=== PATIENT | male | born 1955 | race Caucasian/White ===

== ENCOUNTER → 2016-07-23 | Outpatient (CLI) | payer OTHER ==
--- NOTE | 2016-07-24 08:27 | REP ---
Left wrist series: Four views. History: Wrist arthritis. Findings: There is some mild hypertrophy and early spurring at the first carpometacarpal articulation consistent with osteoarthritis. There is a suggestion of a subcortical cyst in the lunate. No acute bony abnormality. No erosive changes seen. Impression: Mild first carpometacarpal joint osteoarthritic spurring. Small cyst in the lunate. Otherwise negative. Signed by Jeff Bhardwaj MD 07/24/2016 08:43 A
== END ==
LOC: M ADAMS 15:55
PROVIDERS: ATTEND Family Medicine
DX: M19.90 Unspecified osteoarthritis, unspecified site (principal)

== ENCOUNTER 2016-12-01 04:43 | Inpatient (IN) | payer OTHER ==
[~2016-12-01] VITALS: Ht 165.1 cm; Wt 82.4 kg
[2016-12-01] VITALS (7 sets, daily range): BP systolic 105–140; BP diastolic 57–77
[2016-12-01] MEDS ORDERED: VITA1CAP40 (05:03)
[2016-12-01] MEDS ORDERED: LEVO25TA5 (05:03)
[2016-12-01] MEDS ORDERED: B121000T PO (05:03)
[2016-12-01] MEDS ORDERED: ATOR1TAB21 PO ×2 (05:03→09:24)
[2016-12-01] MEDS ORDERED: NS 1,000 ML IV ONE (05:30)
[2016-12-01 06:10] LABS: BASO % 0.1 % (0.0-1.0); EOS # 0.1 K/mm3 (0.0-0.50); EOS % 0.9 % (0.0-3.0); LARGE UNSTAINED CELL # 0.1 K/mm3 (0.0-0.4); LARGE UNSTAINED CELL % 0.9 % (0.0-4.0); LYMPH # 1.3 K/mm3 (1.5-4.5); LYMPH % 8.3 % (24.0-44.0); MEAN CORPUSCULAR HEMOGLOBIN 30.4 pg (27.0-33.0); MEAN CORPUSCULAR HGB CONC 34.6 g/dl (32.0-36.5); MEAN CORPUSCULAR VOLUME 87.9 fl (80.0-96.0); MONO # 0.6 K/mm3 (0.0-0.8); MONO % 4.2 % (0.0-5.0); NEUTROPHILS # 11.9 K/mm3 (1.8-7.7); NEUTROPHILS % 85.6 % (36.0-66.0); PLATELET COUNT, AUTOMATED 222 k/mm3 (150-450); RED CELL DISTRIBUTION WIDTH 12.9 % (11.5-14.5); WHITE BLOOD COUNT 13.9 K/mm3 (4.0-10.0)
[2016-12-01 06:28] LABS: INR 0.93
[2016-12-01 06:30] LABS: ALBUMIN 3.7 GM/DL (3.2-5.2); ALBUMIN/GLOBULIN RATIO 1.06 (1.00-1.93); BILIRUBIN,DIRECT 0.3 MG/DL (0.0-0.2); BILIRUBIN,TOTAL 1.4 MG/DL (0.2-1.0); CALCIUM LEVEL 8.9 MG/DL (8.5-10.1); CREATININE FOR GFR 1.31 MG/DL (0.70-1.30); GLOMERULAR FILTRATION RATE 59.6 (>56); POTASSIUM SERUM 3.7 MEQ/L (3.5-5.1); TOTAL PROTEIN 7.2 GM/DL (6.4-8.2)
[2016-12-01] MEDS ORDERED: MORPHINE 4 MG/ML 1ML SYRINGE IV ONE (06:30)
[2016-12-01] MEDS ORDERED: ISOVUE-370 76% 100ML VIAL (Q9967) As Ordered ONE (06:36)
--- NOTE | 2016-12-01 07:12 | REP ---
Clinical: Right-sided abdominal pain. Technique: Axial contrast enhanced images from the thoracic inlet to the upper abdomen using 100 ml Isovue 370 intravenous contrast material with coronal and sagittal re-formations. Findings: Right lower quadrant inflammatory changes surrounding a dilated appendix measuring greater than 12 mm diameter is compatible with acute appendicitis. Secondary inflammatory changes to the terminal ileum and base of the cecum noted. No evidence for bowel obstruction. No free air. No evidence for perforation or drainable collection/abscess. Small amount of ascites extends into the pelvis. Liver demonstrates few scattered subcentimeter hypodensities likely representing cysts. Spleen, pancreas, bilateral adrenal glands and kidneys are normal. The patient is status post cholecystectomy. Small hiatal hernia at the gastroesophageal junction. Evidence for colonic diverticula without acute diverticulitis. Pelvis demonstrates normal bladder and age appropriate prostate/seminal vesicles. No free air. No intraperitoneal or retroperitoneal adenopathy. Abdominal aorta and vasculature is normal. Surrounding musculoskeletal structures are intact. Impression: Acute appendicitis as described above. No evidence for bowel obstruction, perforation or drainable collection/abscess. Signed by Kenneth Champagne MD 12/01/2016 07:03 A
[2016-12-01] MEDS ORDERED: PIPERACILLIN/TAZOBACTAM SOD 3.375 GM in D5W MINI-BAG PLUS 50 ML IV ONE (07:30)
[2016-12-01] MEDS ORDERED: ONDANSETRON 4MG/2ML VIAL (J2405) IV ONE (08:15)
--- NOTE | 2016-12-01 08:33 | REP ---
Clinical: Preoperative assessment. Technique: PA and lateral. Findings: Mediastinum and cardiac silhouette are normal. Airway is midline and patent. Bibasilar atelectasis (right greater than left) noted. Small pleural reaction cannot be excluded. No pneumothorax. Skeletal structures intact. Impression: Bibasilar atelectasis. Cannot exclude small pleural reaction. Signed by Kenneth Champagne MD 12/01/2016 08:25 A
[2016-12-01] MEDS ORDERED: VITMTA PO (09:24)
[2016-12-01] MEDS ORDERED: DRIS50002 PO (09:24)
[2016-12-01] MEDS ORDERED: VITA10002 PO (09:24)
[2016-12-01] MEDS ORDERED: LEVO25TA34 PO (09:24)
[2016-12-01] MEDS ORDERED: ONDANSETRON 4MG/2ML VIAL (J2405) IV PRN ×2 (11:00→19:00)
--- NOTE | 2016-12-01 11:26 | ECGEPIP ---
Stationary ECG Study [facility] - ED Test Date: 2016-12-01 Pat Name: ALEJANDRO GALLEGOS Department: Room: - Gender: M Director Of Consumer Marketing: jesus : 1955 Requested By: ALYX DIAZ PA-C. Order Number: [id number] Reading MD: Ashley Blanton Measurements Intervals [place] Rate: 90 P: -3 OR: 140 QRS: 56 QRSD: 94 T: 41 QT: 348 QTc: 426 Interpretive Statements SINUS RHYTHM NSTTW ABNORMALITY COMPARED 08/02/12 Electronically Signed On 12-01-2016 11:26:06 EDT by Ashley Blanton
[2016-12-01] MEDS ORDERED: ACETAMINOPHEN 325 MG TAB As Ordered ONE (11:49)
[2016-12-01] MEDS: ACETAMINOPHEN TAB 650MG DOSE (2X325MG) PO PRN (11:56)
[2016-12-01] MEDS: MORPHINE 4 MG/ML 1ML SYRINGE IV PRN ×2 (13:51→23:22)
[2016-12-01] MEDS: PIPERACILLIN/TAZOBACTAM SOD 3.375 GM in D5W MINI-BAG PLUS 50 ML IV SCH ×2 (13:51→19:23)
[2016-12-01] MEDS: LR 1,000 ML IV SCH ×2 (13:51→21:20)
[2016-12-01] MEDS ORDERED: BUPIVACAINE HCL 0.25% 30 ML VIAL As Ordered ONE (16:28)
[2016-12-01] MEDS ORDERED: LIDOCAINE 1% SDV INJ 30 ML VIAL As Ordered ONE (16:28)
[2016-12-01] MEDS ORDERED: fentaNYL 250 MCG/5 ML INJECTION (J3010) As Ordered ONE (16:49)
[2016-12-01] MEDS ORDERED: LIDOCAINE 2% JELLY 30 ML As Ordered ONE (16:49)
[2016-12-01] MEDS ORDERED: PHENYLephrine HCL 500 MCG/5 ML (100MCG/ML) SYRINGE (J2370) As Ordered ONE ×2 (16:51→17:01)
[2016-12-01] MEDS ORDERED: METOCLOPRAMIDE INJ 10MG/2ML VIAL (J2765) As Ordered ONE (16:51)
[2016-12-01] MEDS ORDERED: LIDOCAINE 2% INJ 100 MG/5 ML SDV (FOR ANES.) As Ordered ONE (16:52)
[2016-12-01] MEDS ORDERED: ROCURONIUM BROMIDE 50 MG/5 ML VIAL/SYRINGE As Ordered ONE (16:53)
[2016-12-01] MEDS ORDERED: PROPOFOL 200 MG/20 ML VIAL As Ordered ONE (16:54)
[2016-12-01] MEDS ORDERED: NEOSTIGMINE 1MG/ML 5 ML SYRINGE (J2710) As Ordered ONE (17:00)
[2016-12-01] MEDS ORDERED: GLYCOPYRROLATE INJ 0.2 MG/ML 2 ML VIAL As Ordered ONE (17:00)
[2016-12-01] MEDS ORDERED: ONDANSETRON 4MG/2ML VIAL (J2405) As Ordered ONE (17:00)
[2016-12-01] MEDS ORDERED: MIDAZOLAM INJ 2 MG/2 ML VIAL (J2250) As Ordered ONE (17:18)
[2016-12-01] MEDS ORDERED: fentaNYL 100 MCG/2 ML INJECTION (J3010) As Ordered ONE (18:01)
[2016-12-01] MEDS ORDERED: LEVALBUTEROL 1.25 MG/0.5 ML CONCENTRATE NEB As Ordered ONE (18:08)
--- NOTE | 2016-12-01 18:11 | ROOPDOC ---
[facility] Report Of Operation Report of Operation DATE OF PROCEDURE: 12/01/16 PREPROCEDURE DIAGNOSES: Acute Appendicitis POSTPROCEDURE DIAGNOSES: Perforated appendicitis PROCEDURE: Laparoscopic Appendectomy. SURGEON: Huan Alaniz MD CONSTITUTION[employer] PROFESSOR: KOLBY Rodriguez ANESTHESIA: general. ESTIMATED BLOOD LOSS: Approximately 50 mL. COMPLICATIONS: none. REMARKS: 61 M with one day history of abdominal pain localizing to the right lower quadrant. PROCEDURE NOTE: Grossly ischemic and necrotic appendix with perforation at the base of the appendix. The mesoappendix his very thickened and friable resulting in bleeding and some difficulty in controlling the appendiceal artery initially. The appendix was stapled at the base just beyond the area of perforation. The staple lines reflect the dusky appendix but stable. A tongue of omentum was then draped on top of the stump and a 10 flat SHIRLEY drain was left in place. DESCRIPTION OF PROCEDURE: .Patient has been given a dose of Zosyn perioperatively.Patient was brought to the operating room, placed supine on the table. Sequential compression device placed for DVT prophylaxis. General endotracheal anesthesia started. The abdomen prepped and draped in usual sterile fashion. After a surgical timeout, we began our surgery Entry into the abdomen done through an incision at the left upper quadrant to avoid previous periumbilical incisions and then dissipated scaring underneath this.. Veress needle inserted on a controlled fashion. Intra-abdominal placement confirmed with saline drop technique. CO2 insufflation started to a pressure of 15 mmHg. Using the same incision a 12 mm port was placed under direct vision of laparoscope. Insertion site was inspected for injury and none was found. He was placed on a Trendelenburg position the right side tilted to about 30 to allow for better visualization of the appendix. The area underneath the umbilicus seems clear. A 12 mm port was placed under direct vision. Another 5 mm working port was placed at the left lower quadrant area. Operative findings: There was some thickened omentum covering the bowels. There is some signs of inflammation on the omentum overlying the right lower quadrant area. After removing the omentum from the area of the appendix was noted adhered to the right sidewall. This was gross lesions ischemic with the accompanying mesal appendix thick and friable. There was some murky fluid bathing the appendix and along the right gutter and perihepatic area. The appendix was located, the adhered bowels and mesentery was widely dissected away from the appendix freeing up the appendix from the inflammatory adhesions using [place] instrument and suction irrigation. The Surrounding bowels retracted away from the appendix. This was grasped to pull the base of the appendix into view. The mesoappendix was divided using Harmonic scalpel down to the base. The mesoappendix was so friable that we had difficulty controlling the appendiceal artery intially but eventually did so with hemoclips The appendix looks ischemic throughtout.This was followed down to the base where a perforation was noted right at the base close to its insertion to the cecum. The cecal wall close to the area is mildly thickened. Using [place] instrument, I was able to get beyond the area of perforation in between the appendix and cecum to lift the appendix up. A 45 mm stapler with a blue load was then used to divide the appendix at its base beyond the perforation. As the appendix itself is somewhat dusky in appearance, the stump is dusky appearing but the staple line is intact. Unfortunately since the cecum is thickened, we could not get any further purchase downward with the stapler. I then mundo a thick tongue of omentum back and wrapped this around the stump and held it in place with hemoclips to the wall of the cecum, the surrounding epiploic fat which seems to hold it in place. A 10 flat SHIRLEY drain was then left close the stump and around the right gutter coming out through the left upper quadrant port site. Appendix was then delivered into an Endo Catch bag. After re- insufflation the surgical site was inspected for hemostasis, the visualized fluid collections irrigated and suctioned off until clear return. Surrounding areas of the abdomen and inspected for fluid collections or signs of injury. The abdomen was deflated. All ports removed. The umbilical fascial defect repaired with 0 Vicryl in a mattress fashion. All skin incisions closed with 4- 0 Monocryl in a subcuticular fashion. Steri-Strips and gauze dressing used for wound coverage. Patient was promptly awake and extubated and brought to recovery room stable. All counts of sponges and instruments verified to be correct. JCARLOS ALANIZ MD Dec 01, 2016 16:51
[2016-12-01] MEDS ORDERED: LEVALBUTEROL 1.25 MG/0.5 ML CONCENTRATE NEB NEB PRN (18:30)
[2016-12-01] MEDS: LEVALBUTEROL 1.25 MG/0.5 ML CONCENTRATE NEB NEB SCH ×2 (18:35→19:01)
[2016-12-01] MEDS ORDERED: KETOROLAC 30 MG/ML VIAL (J1885) As Ordered ONE (18:47)
[2016-12-01] MEDS ORDERED: ZOSYN 3.375 GM VIAL (J2543) As Ordered ONE (18:57)
[2016-12-01] MEDS ORDERED: METOCLOPRAMIDE INJ 10MG/2ML VIAL (J2765) IV PRN (19:00)
[2016-12-01] MEDS ORDERED: LR 1,000 ML IV SCH (19:00)
[2016-12-01] MEDS ORDERED: fentaNYL 100 MCG/2 ML INJECTION (J3010) IV PRN (19:00)
[2016-12-01] MEDS: KETOROLAC 30 MG/ML VIAL (J1885) IV PRN (19:00)
[2016-12-01] MEDS ORDERED: PERCOCET 5MG/325MG TAB As Ordered ONE (19:12)
[2016-12-01] MEDS ORDERED: PERCOCET 5MG/325MG TAB PO PRN (19:30)
[2016-12-01] MEDS: CYANOCOBALAMIN 500 MCG TAB PO SCH (21:20)
[2016-12-01] MEDS: MULTIVITAMINS/MINERALS THERAP 1 TAB PO SCH (21:20)
[2016-12-01] MEDS: ATORVASTATIN 20 MG TAB PO SCH (21:20)
[2016-12-02 00:45] VITALS: BP 107/60
[2016-12-02] MEDS: PIPERACILLIN/TAZOBACTAM SOD 3.375 GM in D5W MINI-BAG PLUS 50 ML IV SCH ×4 (02:03→20:09)
[2016-12-02] MEDS: KETOROLAC 30 MG/ML VIAL (J1885) IV PRN (02:04)
[2016-12-02 04:00] VITALS: BP 99/56
[2016-12-02] MEDS: LEVOTHYROXINE 25MCG TABLET (0.025MG) PO SCH (05:45)
[2016-12-02] MEDS: LR 1,000 ML IV SCH ×2 (05:45→10:08)
[2016-12-02 06:54] LABS: BASO % 0.1 % (0.0-1.0); EOS # 0.1 K/mm3 (0.0-0.50); EOS % 0.7 % (0.0-3.0); LARGE UNSTAINED CELL # 0.1 K/mm3 (0.0-0.4); LARGE UNSTAINED CELL % 1.6 % (0.0-4.0); LYMPH # 1.2 K/mm3 (1.5-4.5); LYMPH % 13.3 % (24.0-44.0); MEAN CORPUSCULAR HEMOGLOBIN 30.8 pg (27.0-33.0); MEAN CORPUSCULAR HGB CONC 34.3 g/dl (32.0-36.5); MEAN CORPUSCULAR VOLUME 89.8 fl (80.0-96.0); MONO # 0.5 K/mm3 (0.0-0.8); NEUTROPHILS # 6.4 K/mm3 (1.8-7.7); NEUTROPHILS % 78.2 % (36.0-66.0); PLATELET COUNT, AUTOMATED 156 k/mm3 (150-450); RED CELL DISTRIBUTION WIDTH 13.1 % (11.5-14.5); WHITE BLOOD COUNT 8.2 K/mm3 (4.0-10.0)
[2016-12-02 07:08] LABS: CALCIUM LEVEL 8.1 MG/DL (8.5-10.1); CREATININE FOR GFR 1.56 MG/DL (0.70-1.30); GLOMERULAR FILTRATION RATE 48.7 (>56); POTASSIUM SERUM 3.8 MEQ/L (3.5-5.1)
[2016-12-02 08:00] VITALS: BP 110/63
--- NOTE | 2016-12-02 08:35 | IPNPDOC ---
Subjective General Date/Time Seen The patient was seen on 12/02/16 at 08:27. Subject Chief Complaint/History The patient is a 61-year-old male admitted with a reason for visit of Acute Appendicitis. He had perforated appendicitis, with perforation at the base of the appendix. He had low grade fever overnight. reports pain and discomfort at the right lower quadrant area. Denies nausea. Abdomen appears distended. Slightly short of breath when talking. Current Medications Current Medications Current Medications Acetaminophen (Tylenol Tab) 650 mg Q4HP PRN PO MILD PAIN or TEMP > 101 Last administered on 12/01/16 11:56; Start 12/01/16 at 11:00; Stop 12/31/16 at 10:59 Atorvastatin Calcium (Lipitor) 10 mg QPM PO Last administered on 12/01/16 21: 20; Start 12/01/16 at 21:00; Stop 12/31/16 at 20:59 Cyanocobalamin (Vitamin B12) 1,000 mcg QPM PO Last administered on 12/01/16 21 :20; Start 12/01/16 at 21:00; Stop 12/31/16 at 20:59 Fentanyl Citrate (Sublimaze) 25 mcg Q5MP PRN IV MODERATE PAIN (PS 4-7); Start 12/01/16 at 19:00; Stop 12/01/16 at 20:00; Status DC Home Med (Med Rec Complete!) ASDIRECTED XX ; Start 12/01/16 at 09:30; Stop at 09:30; Status DC Ketorolac Tromethamine (ToRADol) 30 mg Q6HP PRN IV PAIN Last administered on 02:04; Start 12/01/16 at 19:00; Stop 12/06/16 at 18:59 Lactated Ringer's 1,000 ml @ 100 mls/hr Q10H IV ; Start 12/01/16 at 19:00; Stop 12/01/16 at 20:00; Status DC Lactated Ringer's 1,000 ml @ 125 mls/hr Q8H IV Last administered on 12/02/16 05:45; Start 12/01/16 at 10:54; Stop 12/31/16 at 10:53 Levalbuterol HCl (Xopenex Neb) 0.63 mg Q4HP PRN NEB shortness of breath; Start 12/01/16 at 18:30; Stop 12/31/16 at 18:29 Levalbuterol HCl (Xopenex Neb) 1.25 mg ASDIRECTED NEB Last administered on 12/01 18:35; Start 12/01/16 at 19:00; Stop 12/01/16 at 20:00; Status DC Levothyroxine Sodium (Synthroid) 25 mcg DAILY@0600 PO Last administered on 12/02 05:45; Start 12/02/16 at 06:00; Stop 01/01/17 at 05:59 Metoclopramide HCl (REGLAN INJection) 10 mg Q6HP PRN IV NAUSEA OR VOMITING; Start 12/01/16 at 19:00; Stop 12/01/16 at 20:00; Status DC Morphine Sulfate (Morphine Sulfate Inj) 4 mg Q2HP PRN IV SEVERE PAIN (PS 8-10) Last administered on 12/01/16 23:22; Start 12/01/16 at 11:00; Stop 12/08/16 at 10:59 Multivitamins (Theragram-M) 1 tab QPM PO Last administered on 12/01/16 21:20; Start 12/01/16 at 21:00; Stop 12/31/16 at 20:59 Ondansetron HCl (ZOFRAN INJection) 4 mg Q4HP PRN IV NAUSEA OR VOMITING; Start 12/01/16 at 19:00; Stop 12/01/16 at 20:00; Status DC Ondansetron HCl (ZOFRAN INJection) 4 mg Q6HP PRN IV NAUSEA OR VOMITING; Start 12/01/16 at 11:00; Stop 12/31/16 at 10:59 Oxycodone/ Acetaminophen (Percocet 5mg/ 325mg Tablet) 1 tab ASDIRECTED PRN PO MILD/MODERATE PAIN (PS 1-7) Last administered on 12/01/16 19:22; Start at 19:30; Stop 12/01/16 at 20:30; Status DC Piperacillin Sod/ Tazobactam Sod 3.375 gm/Dextrose 50 ml @ 50 mls/hr Q6H IV Last administered on 12/02/16 08:02; Start 12/01/16 at 14:00; Stop 12/08/16 at 13:59 Allergies Coded Allergies: Milk Protein Extract (Verified Allergy, Unknown, 12/01/16) Tiotropium (Verified Allergy, Unknown, 12/01/16) Objective Physical Examination Examination GENERAL APPEARANCE:Patient seen, laying in bed, awake, alert, and oriented.Pursed lips on talking. SKIN: Warm and moist. HEENT: Normocephalic, atraumatic. [place] palpebral conjunctiva, anicteric sclerae. Lips and mucosa appear moist. NECK: Supple, no thyromegaly. No obvious jugular venous distention. LUNGS: Slight decreased breath sounds, occasional wheezing, no rhonchi, slight labored breathing when talking.. HEART: HR 90s, regular. ABDOMEN: Abdomen is moderately distended, soft, round, protuberant. incision site dressings dry, SHIRLEY drain with light pink serosanguenous fluid. EXTREMITIES: Extremities have no deformities. No edema identified. Vital Signs Vital Signs Date Time Temp Pulse Resp B/P (MAP) Pulse Ox O2 Delivery O2 Flow Rate FiO2 12/02/16 08:00 Nasal Cannula 3.0 12/02/16 04:00 98.6 83 20 99/56 (70) 96 I&Os I&O- Last 24 Hours up to 6 AM 12/02/16 06:00 Intake Total 5910 ml Output Total 335 ml Balance 5575 ml On 3 L NC, Sats 90% Laboratory Data Labs 24H Laboratory Tests 2 12/02/16 06:33: White Blood Count 8.2, Red Blood Count 4.14L, Hemoglobin 12.7#L, Hematocrit 37.2L, Mean Corpuscular Volume 89.8, Mean Corpuscular Hemoglobin 30.8, Mean Corpuscular Hemoglobin Concent 34.3, Red Cell Distribution Width 13.1, Platelet Count 156, Neutrophils (%) (Auto) 78.2H, Lymphocytes (%) (Auto) 13.3L, Monocytes (%) (Auto) 6.0H, Eosinophils (%) (Auto) 0.7, Basophils (%) (Auto) 0.1 , Neutrophils # (Auto) 6.4, Lymphocytes # (Auto) 1.2L, Monocytes # (Auto) 0.5, Eosinophils # (Auto) 0.1, Basophils # (Auto) 0.0, Large Unclassified Cells % 1.6 , Large Unclassified Cells # 0.1, Anion Gap 7L, Glomerular Filtration Rate 48.7L , Blood Urea Nitrogen 14, Creatinine 1.56H, Sodium Level 139, Potassium Level 3.8, Chloride Level 101, Carbon Dioxide Level 31, Calcium Level 8.1L CBC/BMP Laboratory Tests 12/02/16 06:33 Red Blood Count 4.14 L, Mean Corpuscular Volume 89.8, Mean Corpuscular Hemoglobin 30.8, Mean Corpuscular Hemoglobin Concent 34.3, Red Cell Distribution Width 13.1, Neutrophils (%) (Auto) 78.2 H, Lymphocytes (%) (Auto) 13.3 L, Monocytes (%) (Auto) 6.0 H, Eosinophils (%) (Auto) 0.7, Basophils (%) ( Auto) 0.1, Neutrophils # (Auto) 6.4, Lymphocytes # (Auto) 1.2 L, Monocytes # ( Auto) 0.5, Eosinophils # (Auto) 0.1, Basophils # (Auto) 0.0, Calcium Level 8.1 L Impression POD 1 Perforated Appendicitis s/p Laparoscopic Appendectomy COPD My concern is that the perforation is at the base of the appendix. I was able to get beyond the perforation with the stapler but stump is slightly dusky. We will monitor the drainage. He had fever preoperatively, this is coming down, though still have low grade febrile episodes. We will continue the antibiotics for now. He looks distended. could be ileus vs residual pneumoperitoneum. He needed nebs after extubation with tightness of his breathing, we continued this overnight. We will ask the medical team to look at him and see if they have more recommendations for his COPD. I expect he will stay through the weekend. Plan / VTE VTE Prophylaxis Ordered?: Yes JCARLOS YANG MD Dec 02, 2016 08:35
[2016-12-02] MEDS ORDERED: ALBUTEROL SULFATE 2.5 MG/0.5 ML INH NEB SOLN NEB PRN (09:00)
[2016-12-02] MEDS: ACETAMINOPHEN TAB 650MG DOSE (2X325MG) PO PRN ×2 (10:08→20:09)
[2016-12-02] MEDS: MORPHINE 4 MG/ML 1ML SYRINGE IV PRN ×2 (10:09→20:06)
[2016-12-02 10:30] LABS: ABG BASE EXCESS 2.6 (-2.0-2.0); ABG DEVICE NASAL CANN; ABG HCO3 27.1 MEQ/L (22.0-26.0); ABG PARTIAL PRESSURE CO2 41.6 mmHg (35.0-45.0); ABG STANDARD HCO3 26.5 MEQ/L (22.0-26.0); ABG TOTAL CO2 28.4 MEQ/L (22.0-29.0); ABG pH (ARTERIAL) 7.432 UNITS (7.350-7.450)
[2016-12-02 10:35] LABS: ABG PARTIAL PRESSURE O2 47.8 mmHg (75.0-100.0)
--- NOTE | 2016-12-02 10:36 | REP ---
CHEST, TWO VIEWS: Two views of the chest are performed. Comparison 12/01/2016. There is mild bibasilar atelectasis/infiltrate and there appear to be small pleural effusions. Heart is not enlarged. Mediastinal silhouette is unchanged. IMPRESSION: Mild bibasilar infiltrate/atelectasis with small effusions. Signed by Jourdan Timmons MD 12/02/2016 03:27 P
--- NOTE | 2016-12-02 11:57 | HPEPDOC ---
General Surgery H&P Date of Admission Dec 01, 2016 at 18:07 History and Physical CHIEF COMPLAINT: adominal pain HISTORY OF PRESENT ILLNESS: 61 M who presented himself to the emergency room early this morning with complaints of ongoing right lower quadrant abdominal pain since yesterday morning. He initially felt a twinge/pulling pain along the periumbilical and left lower quadrant area which he thought was a pulled muscle. This continued throughout the day at work. He works as a [employer] truck driver. When he got home the pain has become more steady and localized to the right lower quadrat area. He reports one episode of vomiting and severe nausea. He dit not note any fever or chills.Denies any sick contacts. Due to the worsening pain, he went to the emergency room. ALLERGIES: Please see below. HOME MEDICATIONS: Please see below. PAST MEDICAL HISTORY: Asthma Thyroid disease Gastroesophageal reflux disease COPD/asthma PAST SURGICAL HISTORY: right inguinal hernia repair bilateral laparoscopic inguinal hernia repair PERSONAL/SOCIAL HISTORY: Used to be 1 1 and 1/2 pack daily smoker. Now uses e- cigarettes 1 vial for 2 to 3 days.. REVIEW OF SYSTEMS: GENERAL: Reports fevers and chills, denies weight loss HEENT: Denies blurred vision and double vision. Denies ear symptoms. Denies hoarseness. NECK: Denies any neck pain. CARDIOVASCULAR: Denies chest pain and palpitations. MUSCULOSKELETAL: Denies arthralgias, back pain and thrombophlebitis. SKIN: Denies rash. NEUROLOGIC: Denies headache, stroke and transient ischemic attack. PSYCHIATRIC: Denies anxiety and depression. ENDOCRINE: On thyroid replacement. HEMATOLOGY/ONCOLOGY: Denies any bleeding or clotting disorder. HEART: Denies any chest pains, palpitations, paroxysmal dyspnea, orthopnea. PULMONARY: Denies chronic cough, dyspnea and wheezing. GASTROINTESTINAL: Denies rectal bleeding, family history of colon cancer, constipation, diarrhea, dysphagia, heartburn and jaundice. GENITOURINARY: Denies dysuria, frequency, hematuria and nocturia. ENDOCRINE: Denies polydipsia, polyphagia, polyuria, heat or cold intolerance. INFECTIOUS: Denies any recent upper respiratory tract infection, UTI, need for use of antibiotics. NUTRITION: Reports good appetite. PHYSICAL EXAMINATION: VITAL SIGNS: Please see below. GENERAL APPEARANCE: Patient seen at bedside, appears comfortable. Awake, alert, oriented. HEENT: Normocephalic, atraumatic. [place] palpebral conjunctivae. Anicteric sclerae. Lips moist. CHEST: No chest wall abnormalities. Normal respiratory motion/effort. NECK: Supple. No thyromegaly. No lymphadenopathies. LUNGS: Lung sounds are clear to auscultation bilaterally. No wheezing appreciated. HEART: No chest wall abnormalities. Heart rate and rhythm are regular with no murmurs. ABDOMEN: Abdomen is obese, soft, slightly rounded. No hepatosplenomegaly. No umbilical or groin herniations, nondistended. No noticeable rebound or guarding. No grimacing with palpation. No rebound tenderness. No masses appreciated. SKIN: Warm, moist. EXTREMITIES: Extremities have no deformities. No edema identified. NEUROLOGICAL: . ANCILLARIES: . LABORATORY DATA: Please see below. MICROBIOLOGY: Please see below. IMAGING: . IMPRESSION AND PLAN: Acute Appendicitis Patient was brought to the operating room and found to have perforation at the base of the appendix. I was able to control the area beyond the perforation and the appendix was divided with a stapler. The mesoappendix was also very friable. A SHIRLEY drain has been left in place both to evacuate the irrigation fluid and for monitoring of the stump. He was febrile prior to the OR. He will be admitted as an inpatient. We will continue IV antibiotics. I will allow him some clear liquids tonight. On waking up after the surgery he had some difficulty breathing requiring nebulization. He is comfortable afterwards. He is not on any medications for his COPD though, so will put him on some xopenex nebulizations. I suspect it will take a couple of days before his fever goes away. Vital Signs Vital Signs Date Time Temp Pulse Resp B/P (MAP) Pulse Ox O2 Delivery O2 Flow Rate FiO2 12/02/16 10:19 22 12/02/16 10:09 Nasal Cannula 2.0 12/02/16 09:50 101.7 12/02/16 08:00 84 110/63 (79) 94 I&Os I&O- Last 24 Hours up to 6 AM 12/02/16 06:00 Intake Total 5910 ml Output Total 335 ml Balance 5575 ml Laboratory Data Labs 24H Laboratory Tests 2 12/02/16 06:29: B-Type Natriuretic Peptide 142H 12/02/16 06:33: White Blood Count 8.2, Red Blood Count 4.14L, Hemoglobin 12.7#L, Hematocrit 37.2L, Mean Corpuscular Volume 89.8, Mean Corpuscular Hemoglobin 30.8, Mean Corpuscular Hemoglobin Concent 34.3, Red Cell Distribution Width 13.1, Platelet Count 156, Neutrophils (%) (Auto) 78.2H, Lymphocytes (%) (Auto) 13.3L, Monocytes (%) (Auto) 6.0H, Eosinophils (%) (Auto) 0.7, Basophils (%) (Auto) 0.1 , Neutrophils # (Auto) 6.4, Lymphocytes # (Auto) 1.2L, Monocytes # (Auto) 0.5, Eosinophils # (Auto) 0.1, Basophils # (Auto) 0.0, Large Unclassified Cells % 1.6 , Large Unclassified Cells # 0.1, Anion Gap 7L, Glomerular Filtration Rate 48.7L , Blood Urea Nitrogen 14, Creatinine 1.56H, Sodium Level 139, Potassium Level 3.8, Chloride Level 101, Carbon Dioxide Level 31, Calcium Level 8.1L 12/02/16 10:07: Blood Gas Bicarbonate Standard 26.5H, Arterial Blood pH 7.432, Arterial Blood Partial Pressure CO2 41.6, Arterial Blood Partial Pressure O2 47.8*L, Arterial Blood Total CO2 28.4, Arterial Blood HCO3 27.1H, Arterial Blood Base Excess 2.6H , Arterial Blood Oxygen Saturation 85.8L, Arterial Blood Gas Liter Flow 3L, Oxygen Delivery Device NASAL [place] CBC/BMP Laboratory Tests 12/02/16 06:33 Red Blood Count 4.14 L, Mean Corpuscular Volume 89.8, Mean Corpuscular Hemoglobin 30.8, Mean Corpuscular Hemoglobin Concent 34.3, Red Cell Distribution Width 13.1, Neutrophils (%) (Auto) 78.2 H, Lymphocytes (%) (Auto) 13.3 L, Monocytes (%) (Auto) 6.0 H, Eosinophils (%) (Auto) 0.7, Basophils (%) ( Auto) 0.1, Neutrophils # (Auto) 6.4, Lymphocytes # (Auto) 1.2 L, Monocytes # ( Auto) 0.5, Eosinophils # (Auto) 0.1, Basophils # (Auto) 0.0, Calcium Level 8.1 L Home Medications Scheduled Atorvastatin Calcium (Atorvastatin Calcium) 20 Mg Tab, 10 MG PO QPM, (Reported) Ciprofloxacin HCl (Cipro) 500 Mg Tab, 500 MG PO BID@06,18 Cyanocobalamin (Vitamin B-12) 1,000 Mcg Tab, 1,000 MCG PO QPM, (Reported) Levothyroxine Sodium (Levoxyl) 25 Mcg Tab, 25 MCG PO DAILY, (Reported) Metronidazole (Flagyl) 500 Mg Tab, 500 MG PO TID Multivitamins *[facility] STOCKED* (Thera M Plus *[facility] STOCKED*) 1 Tab Tab, 1 TAB PO QPM , (Reported) Vitamin D (Drisdol) 50,000 Unit Cap, 50,000 UNIT PO Q2WK, (Reported) TAKES EVERY OTHER MONDAY Scheduled PRN Oxycodone HCl (Oxycodone HCl) 5 Mg Tab, 5 MG PO Q4HP PRN for SEVERE PAIN (PS 8- 10) Allergies Coded Allergies: Milk Protein Extract (Verified Allergy, Unknown, 12/01/16) Tiotropium (Verified Allergy, Unknown, 12/01/16) JCARLOS YANG MD Dec 02, 2016 11:57
[2016-12-02 12:00] VITALS: BP 111/60
[2016-12-02 13:23] LABS: CREATININE FOR GFR 1.5 MG/DL (0.70-1.30); POTASSIUM SERUM 3.6 MEQ/L (3.5-5.1)
[2016-12-02] MEDS: ALBUTEROL SULFATE 2.5 MG/0.5 ML INH NEB SOLN NEB SCH ×2 (13:26→19:33)
[2016-12-02 16:00] VITALS: BP 128/69
--- NOTE | 2016-12-02 19:51 | CR ---
DATE OF CONSULTATION: 12/02/2016 The patient underwent surgery for appendicitis; did have a ruptured appendix and continuing on Zosyn post surgery with continued abdominal pain. His abdomen is somewhat distended and uncomfortable and he breathes he has pain referable to the right lower quadrant. He is not really experiencing a cough or sense of dyspnea. PAST MEDICAL HISTORY: Remarkable for "COPD". Last spirometry was done in 2010 showing an FEV-1 of 2.4 and a FEV1/FVC ratio of 71%. FVC was 3.35. Previous imaging studies have shown evidence for emphysema. The patient quit smoking cigarettes 3 years ago, but continues to use a so-called electronic cigarette. The patient has history also of B12 deficiency. 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 Evans. Urinary tract E-coli infection associated with use Spiriva which contributed to incomplete bladder emptying, chronic kidney disease, stage III and cervical degenerative disc disease. PAST SURGICAL HISTORY: Includes hernia, inguinal right, cholecystectomy in 1997, bilateral inguinal hernia repair with mesh. FAMILY HISTORY: Father of pneumonia and history of gastric and esophageal cancer, mother is alive, is a breast cancer survivor. REVIEW OF SYSTEMS: At this time he is not experiencing a headache, pleuritic pain, pain with breathing is referable to his right lower quadrant. No tremors. No numbness, tingling, weakness, no difficulty voiding, no weakness. No fainting, no loss of consciousness. No tremor. No and no history of seizures. PHYSICAL EXAMINATION: Temperature of 100.9 documented at 2345 hours yesterday. This morning is afebrile at 98.6, blood pressure most recent 99/56, pulse oximetry 96% on 3 liters. General: He is alert, pleasant gentleman in mild to moderate distress related to abdominal pain. He denies dyspnea. HEENT: Normocephalic, atraumatic. Pupils equal. Full extraocular movements without icterus. No neck mass. No thyroid enlargement or nodules. Heart: Regular rhythm. No murmur detected. Pulses full throughout. Abdomen: Bowel sounds are quiet. Abdomen is distended, quite tender to palpation. Extremities: Show no edema. No clubbing and no deformity. Neurologic: He moves all extremities well. No sensory deficits. Gait not tested. LABORATORY DATA: Includes electrolytes showing a GFR of 48.7, creatinine 1.56, decreased from yesterday's 1.31, potassium and sodium are normal at 3.8 and 139 respectively. Calcium is slightly low at 8.1. White count 13.9 on admission with left shift, 85.6 neutrophils. Today it is 8200 with a decreased proportion of neutrophils. Hemoglobin down from 15.9 to 12.7. Platelet count is still satisfactory at 156,000. Chest x-ray on admission showed some atelectasis in the right base, flat diaphragms, when viewed from the lateral view. He has borderline cardiomegaly also noted on the chest x-ray. There appears to be some fluid in the fissure between the right and upper lobes. ASSESSMENT: Patient with history of emphysematous type chronic lung disease, ongoing smoking behavior, although he has changed to electronic cigarettes who is now post appendectomy and having suffered a perforated appendix, having ongoing abdominal pain. He is currently on appropriate antibiotics for the intra-abdominal infection, management of which will be left to the surgeon. His lung disease at this time appears to be a relatively minor component of his woes, primarily suffering from some hypopnea which a think is secondary to his abdominal pain. At this point he is saturating adequately with 3 liters. Will obtain a blood gas to confirm that we are no promoting excessive CO2 retention, which seemed unlikely considering he is alert and conversant and engaging and his chemistries did not otherwise suggest CO2 retention. He also has chronic kidney disease which has worsened to at least with a creatinine elevation of 0.25 since admission. His other chronic problems which are mostly musculoskeletal at this time are relatively quiescent. He does have a history of hypothyroidism and he is on replacement. RECOMMENDATIONS: I think the antibiotic choice is reasonable and at this time he is moving air fairly well. Will check his arterial blood gas, will order albuterol nebs 2.5 mg q. 4 hours routinely along with q. 2 hours as needed (p.r.n.). He has a history of urinary tract obstruction associated with use of anticholinergic inhaled therapeutics, therefore will avoid Atrovent for now. At this time he is moving air well enough. I do not think he requires systemic steroids, but the situation with the need to be monitored. Incentive spirometry would be useful so he has a visual guide to motivate him to improve the depth of his ventilations which will otherwise be inhibited by pain. Because of his renal impairment, I think ketorolac should be discontinued. I prefer that from the standpoint of renal safety, rely on narcotic analgesics as necessary for pain control and avoid nonsteroidal anti-inflammatory drugs. Will check of BNP at this time as well and repeat his chest x-ray to see if there has been any significant progression with respect to the right basilar infiltrates compared to yesterday. Even if there has been some change, the antibiotic that he is using for his intraabdominal process should be sufficient with respect antibiotic coverage for his pulmonary problem. The possibility pulmonary embolism cannot be ruled out at this time, but he is given that he is physically active up to the onset of the right lower quadrant pain problem, the appendix, it seems less likely; has not had prolonged bed stay or debility. He has been working up until the time of his hospitalization.
[2016-12-02 20:00] VITALS: BP 134/70
[2016-12-02] MEDS: ATORVASTATIN 20 MG TAB PO SCH (20:09)
[2016-12-02] MEDS: MULTIVITAMINS/MINERALS THERAP 1 TAB PO SCH (20:09)
[2016-12-02] MEDS: CYANOCOBALAMIN 500 MCG TAB PO SCH (20:12)
[2016-12-03] VITALS (7 sets, daily range): BP systolic 107–131; BP diastolic 58–73; O2SAT 95
[2016-12-03] MEDS: LR 1,000 ML IV SCH ×2 (00:33→08:29)
[2016-12-03] MEDS: ALBUTEROL SULFATE 2.5 MG/0.5 ML INH NEB SOLN NEB SCH ×4 (02:42→19:16)
[2016-12-03] MEDS: PIPERACILLIN/TAZOBACTAM SOD 3.375 GM in D5W MINI-BAG PLUS 50 ML IV SCH ×4 (02:44→19:58)
[2016-12-03] MEDS: MORPHINE 4 MG/ML 1ML SYRINGE IV PRN ×2 (03:59→08:29)
[2016-12-03 06:15] LABS: BASO % 0.1 % (0.0-1.0); EOS % 0.3 % (0.0-3.0); LARGE UNSTAINED CELL # 0.2 K/mm3 (0.0-0.4); LARGE UNSTAINED CELL % 1.8 % (0.0-4.0); LYMPH # 0.9 K/mm3 (1.5-4.5); LYMPH % 8.8 % (24.0-44.0); MEAN CORPUSCULAR HEMOGLOBIN 30.8 pg (27.0-33.0); MEAN CORPUSCULAR HGB CONC 34.8 g/dl (32.0-36.5); MEAN CORPUSCULAR VOLUME 88.3 fl (80.0-96.0); MONO # 0.5 K/mm3 (0.0-0.8); MONO % 5.3 % (0.0-5.0); NEUTROPHILS # 7.4 K/mm3 (1.8-7.7); NEUTROPHILS % 83.8 % (36.0-66.0); PLATELET COUNT, AUTOMATED 158 k/mm3 (150-450); RED CELL DISTRIBUTION WIDTH 12.8 % (11.5-14.5); WHITE BLOOD COUNT 8.9 K/mm3 (4.0-10.0)
[2016-12-03] MEDS: LEVOTHYROXINE 25MCG TABLET (0.025MG) PO SCH (06:26)
[2016-12-03 06:30] LABS: ANION GAP 6 MEQ/L (8-16); BLOOD UREA NITROGEN 8 MG/DL (7-18); CALCIUM LEVEL 8.3 MG/DL (8.5-10.1); CARBON DIOXIDE LEVEL 30 MEQ/L (21-32); CHLORIDE LEVEL 100 MEQ/L (98-107); CREATININE FOR GFR 1.16 MG/DL (0.70-1.30); GLOMERULAR FILTRATION RATE > 60.0 (>56); GLUCOSE, FASTING 135 MG/DL (70-105); POTASSIUM SERUM 3.4 MEQ/L (3.5-5.1); SODIUM LEVEL 136 MEQ/L (136-145)
[2016-12-03] MEDS ORDERED: NORCO, ANEXSIA 5/325MG TABLET (HYDROcodone/ACETAMINOPHEN) PO PRN (09:45)
[2016-12-03] MEDS: ACETAMINOPHEN 325 MG TAB PO SCH ×3 (10:11→23:36)
[2016-12-03] MEDS: IBUPROFEN 600 MG TAB PO PRN ×3 (10:11→22:22)
[2016-12-03] MEDS ORDERED: oxyCODONE 5MG TAB PO PRN (12:45)
[2016-12-03] MEDS: POTASSIUM CHLORIDE 10 MEQ SR TABLET PO SCH ×3 (14:26→19:58)
[2016-12-03] MEDS: ALVIMOPAN 12 MG CAPSULE (ENTEREG) PO SCH ×2 (14:26→19:58)
[2016-12-03] MEDS: CYANOCOBALAMIN 500 MCG TAB PO SCH (19:58)
[2016-12-03] MEDS: MULTIVITAMINS/MINERALS THERAP 1 TAB PO SCH (19:58)
[2016-12-03] MEDS: ATORVASTATIN 20 MG TAB PO SCH (19:59)
[2016-12-04] VITALS (7 sets, daily range): BP systolic 92–131; BP diastolic 59–75; O2SAT 94
[2016-12-04] MEDS: PIPERACILLIN/TAZOBACTAM SOD 3.375 GM in D5W MINI-BAG PLUS 50 ML IV SCH ×4 (02:06→20:19)
--- NOTE | 2016-12-04 02:34 | IPNPDOC ---
Subjective Date Seen The patient was seen on 12/03/16. Subjective Chief Complaint/HPI The patient is a 61-year-old male admitted with a reason for visit of Acute Appendicitis. Events since last encounter Patient states that he has been using his incentive spirometer as directed. He notes that he is not normally on supplemental O2 at home, though he remains on it here. Constitutional: Denies: Chills, Fever ENT: Denies: Head Aches Skin: Denies: Rash, Lesions Pulmonary: Denies: Dyspnea, Cough Cardiovascular: Denies: Chest Pain Gastrointestinal: Reports: Abdominal Pain, Denies: Nausea, Vomiting, Diarrhea Genitourinary: Denies: Dysuria, Frequency Neurological: Denies: Weakness Psych: Reports: Mood Normal Objective Physical Examination General Exam: Positive: Alert, Cooperative Eye Exam: Positive: PERRLA, Conjunctiva & lids normal ENT Exam: Positive: Atraumatic, Mucous membr. moist/pink, Pharynx Normal Neck Exam: Positive: Supple, Negative: JVD Chest Exam: Positive: Clear to auscultation, Diminished, Negative: Normal air movement Heart Exam: Positive: Rate Normal Abdomen Exam: Positive: Normal bowel sounds, Soft, Negative: Tenderness Skin Exam: Positive: Nl turgor and temperature, Negative: Rash Neuro Exam: Positive: Normal Gait, Normal Speech Assessment /Plan Problems (1) Supplemental oxygen dependent Problem Text: Will continue O2 for now. VQ scan ordered (AVERY yesterday.) Possibly secondary to atelectasis, and encouraged activity and frequent use of his incentive spirometer. (2) Acute appendicitis Status: Acute Problem Text: Improved, s/p appendectomy Plan/VTE VTE Prophylaxis Ordered?: Yes VS, I&O, 24H, [facility] Vital Signs/I&O Vital Signs Date Time Temp Pulse Resp B/P (MAP) Pulse Ox O2 Delivery O2 Flow Rate FiO2 12/04/16 00:00 61 94 Nasal Cannula 2.0 12/03/16 23:49 97.7 18 111/73 (86) I&O- Last 24 Hours up to 6 AM 12/04/16 06:00 Intake Total 2240 ml Output Total 4080 ml Balance -1840 ml Laboratory Data 24H LABS Laboratory Tests 2 12/03/16 05:56: White Blood Count 8.9, Red Blood Count 3.90L, Hemoglobin 12.0L, Hematocrit 34.5L , Mean Corpuscular Volume 88.3, Mean Corpuscular Hemoglobin 30.8, Mean Corpuscular Hemoglobin Concent 34.8, Red Cell Distribution Width 12.8, Platelet Count 158, Neutrophils (%) (Auto) 83.8H, Lymphocytes (%) (Auto) 8.8L, Monocytes (%) (Auto) 5.3H, Eosinophils (%) (Auto) 0.3, Basophils (%) (Auto) 0.1, Neutrophils # (Auto) 7.4, Lymphocytes # (Auto) 0.9L, Monocytes # (Auto) 0.5, Eosinophils # (Auto) 0.0, Basophils # (Auto) 0.0, Large Unclassified Cells % 1.8 , Large Unclassified Cells # 0.2, Anion Gap 6L, Glomerular Filtration Rate > 60.0, Blood Urea Nitrogen 8, Creatinine 1.16, Sodium Level 136, Potassium Level 3.4L, Chloride Level 100, Carbon Dioxide Level 30, Calcium Level 8.3L CBC/BMP Laboratory Tests 12/03/16 05:56 Red Blood Count 3.90 L, Mean Corpuscular Volume 88.3, Mean Corpuscular Hemoglobin 30.8, Mean Corpuscular Hemoglobin Concent 34.8, Red Cell Distribution Width 12.8, Neutrophils (%) (Auto) 83.8 H, Lymphocytes (%) (Auto) 8.8 L, Monocytes (%) (Auto) 5.3 H, Eosinophils (%) (Auto) 0.3, Basophils (%) ( Auto) 0.1, Neutrophils # (Auto) 7.4, Lymphocytes # (Auto) 0.9 L, Monocytes # ( Auto) 0.5, Eosinophils # (Auto) 0.0, Basophils # (Auto) 0.0, Calcium Level 8.3 L MCKINLEY BRICENO DO Dec 04, 2016 02:34
[2016-12-04] MEDS: LEVOTHYROXINE 25MCG TABLET (0.025MG) PO SCH (05:04)
[2016-12-04] MEDS: ACETAMINOPHEN 325 MG TAB PO SCH ×3 (05:04→18:21)
[2016-12-04 06:39] LABS: BASO % 0.4 % (0.0-1.0); EOS # 0.3 K/mm3 (0.0-0.50); EOS % 4.7 % (0.0-3.0); LARGE UNSTAINED CELL # 0.2 K/mm3 (0.0-0.4); LARGE UNSTAINED CELL % 3.1 % (0.0-4.0); LYMPH # 1.2 K/mm3 (1.5-4.5); LYMPH % 16.1 % (24.0-44.0); MEAN CORPUSCULAR HEMOGLOBIN 30.9 pg (27.0-33.0); MEAN CORPUSCULAR HGB CONC 34.3 g/dl (32.0-36.5); MEAN CORPUSCULAR VOLUME 89.9 fl (80.0-96.0); MONO # 0.4 K/mm3 (0.0-0.8); MONO % 6.3 % (0.0-5.0); NEUTROPHILS # 4.5 K/mm3 (1.8-7.7); NEUTROPHILS % 69.3 % (36.0-66.0); PLATELET COUNT, AUTOMATED 179 k/mm3 (150-450); RED CELL DISTRIBUTION WIDTH 12.9 % (11.5-14.5); WHITE BLOOD COUNT 6.4 K/mm3 (4.0-10.0)
[2016-12-04 06:54] LABS: ANION GAP 6 MEQ/L (8-16); BLOOD UREA NITROGEN 9 MG/DL (7-18); CALCIUM LEVEL 8.7 MG/DL (8.5-10.1); CARBON DIOXIDE LEVEL 31 MEQ/L (21-32); CHLORIDE LEVEL 104 MEQ/L (98-107); CREATININE FOR GFR 1.07 MG/DL (0.70-1.30); GLOMERULAR FILTRATION RATE > 60.0 (>56); GLUCOSE, FASTING 108 MG/DL (70-105); SODIUM LEVEL 141 MEQ/L (136-145)
[2016-12-04 07:10] LABS: POTASSIUM SERUM 4.1 MEQ/L (3.5-5.1)
[2016-12-04] MEDS: ALBUTEROL SULFATE 2.5 MG/0.5 ML INH NEB SOLN NEB SCH ×3 (07:45→19:33)
[2016-12-04] MEDS: ALVIMOPAN 12 MG CAPSULE (ENTEREG) PO SCH ×2 (08:22→20:19)
--- NOTE | 2016-12-04 10:35 | IPNPDOC ---
Subjective Date Seen The patient was seen on 12/04/16. Subjective Chief Complaint/HPI The patient is a 61-year-old male admitted with a reason for visit of Acute Appendicitis. Events since last encounter He states he is doing better today -- it is easier to pull himself forward in bed. Nursing has been weaning his O2, though he remains on 1 L NC, satting 93% . His abdomen feels less bloated. He has been doing a lot of walking, and states that he is using his incentive spirometer. Abdomen is less tender than yesterday. Constitutional: Reports: Fatigue, Denies: Chills, Fever ENT: Denies: Head Aches Pulmonary: Denies: Dyspnea, Cough Cardiovascular: Denies: Chest Pain Gastrointestinal: Reports: Abdominal Pain, Constipation Psych: Reports: Mood Normal Objective Physical Examination General Exam: Positive: Alert, Cooperative Eye Exam: Positive: PERRLA, Conjunctiva & lids normal ENT Exam: Positive: Atraumatic, Mucous membr. moist/pink, Pharynx Normal Neck Exam: Positive: Supple, Negative: JVD Chest Exam: Positive: Clear to auscultation, Diminished, Negative: Normal air movement Heart Exam: Positive: Rate Normal Abdomen Exam: Positive: Normal bowel sounds, Soft, Negative: Tenderness Extremity Exam: Positive: Edema Skin Exam: Positive: Nl turgor and temperature, Negative: Rash Neuro Exam: Positive: Normal Gait, Normal Speech Assessment /Plan Problems (1) Supplemental oxygen dependent Problem Text: 12/04 -- patient, who is not on home O2, still requiring supplemental oxygen. This could be secondary to atelectasis, but I will now order a CT angio to eval for PE, and DC VQ scan. (Normal renal function for 2 days.) (2) Acute appendicitis Status: Acute Problem Text: Improved, s/p appendectomy Plan/VTE VTE Prophylaxis Ordered?: Yes VS, I&O, 24H, Fishbone Vital Signs/I&O Vital Signs Date Time Temp Pulse Resp B/P (MAP) Pulse Ox O2 Delivery O2 Flow Rate FiO2 12/04/16 08:53 72 18 Nasal Cannula 1.0 12/04/16 08:12 98 12/04/16 08:00 98.1 104/59 (74) I&O- Last 24 Hours up to 6 AM 12/04/16 06:00 Intake Total 2290 ml Output Total 4100 ml Balance -1810 ml Laboratory Data 24H LABS Laboratory Tests 2 12/04/16 06:02: White Blood Count 6.4, Red Blood Count 3.90L, Hemoglobin 12.0L, Hematocrit 35.1L , Mean Corpuscular Volume 89.9, Mean Corpuscular Hemoglobin 30.9, Mean Corpuscular Hemoglobin Concent 34.3, Red Cell Distribution Width 12.9, Platelet Count 179, Neutrophils (%) (Auto) 69.3H, Lymphocytes (%) (Auto) 16.1L, Monocytes (%) (Auto) 6.3H, Eosinophils (%) (Auto) 4.7H, Basophils (%) (Auto) 0.4 , Neutrophils # (Auto) 4.5, Lymphocytes # (Auto) 1.2L, Monocytes # (Auto) 0.4, Eosinophils # (Auto) 0.3, Basophils # (Auto) 0.0, Large Unclassified Cells % 3.1 , Large Unclassified Cells # 0.2, Anion Gap 6L, Glomerular Filtration Rate > 60.0, Blood Urea Nitrogen 9, Creatinine 1.07, Sodium Level 141, Potassium Level 4.1#, Chloride Level 104, Carbon Dioxide Level 31, Calcium Level 8.7 CBC/BMP Laboratory Tests 12/04/16 06:02 Red Blood Count 3.90 L, Mean Corpuscular Volume 89.9, Mean Corpuscular Hemoglobin 30.9, Mean Corpuscular Hemoglobin Concent 34.3, Red Cell Distribution Width 12.9, Neutrophils (%) (Auto) 69.3 H, Lymphocytes (%) (Auto) 16.1 L, Monocytes (%) (Auto) 6.3 H, Eosinophils (%) (Auto) 4.7 H, Basophils (%) (Auto) 0.4, Neutrophils # (Auto) 4.5, Lymphocytes # (Auto) 1.2 L, Monocytes # ( Auto) 0.4, Eosinophils # (Auto) 0.3, Basophils # (Auto) 0.0, Calcium Level 8.7 MCKINLEY BRICENO DO Dec 04, 2016 10:34
[2016-12-04] MEDS ORDERED: ISOVUE-370 76% 100ML VIAL (Q9967) As Ordered ONE (11:06)
--- NOTE | 2016-12-04 12:52 | REP ---
REASON: Chest pain. COMPARISON: 05/16/2013, which is the latest prior. CONTRAST: 100 mL Isovue 370. There is excellent visualization of the pulmonary arterial vasculature. There are no focal filling defects present that would be considered consistent with pulmonary emboli. There is no pericardial effusion. The imaged upper abdomen and imaged osseous structures are unchanged remaining within normal limits. Evaluation of the lung sanchez shows bilateral dependent opacities right slightly greater than left seen in conjunction with emphysematous changes. IMPRESSION: 1. There no evidence of a pulmonary embolus. 2. Bibasilar opacities seen in conjunction with very small pleural effusions. 3. Subsegmental atelectatic change versus pneumonia, which needs to be correlated clinically. 4. The aforementioned opacities could obscure a significant nodule. Followup to resolution is recommended. 5. Emphysematous changes. 6. There is no pulmonary embolus. Signed by Abiel David DO 12/04/2016 03:13 P
[2016-12-04] MEDS: ENOXAPARIN 40 MG/0.4 ML SYRINGE (J1650) SC SCH (15:20)
[2016-12-04] MEDS: CYANOCOBALAMIN 500 MCG TAB PO SCH (20:19)
[2016-12-04] MEDS: ATORVASTATIN 20 MG TAB PO SCH (20:19)
[2016-12-04] MEDS: MULTIVITAMINS/MINERALS THERAP 1 TAB PO SCH (20:20)
[2016-12-05] VITALS: BP 131/80
[2016-12-05] MEDS: PIPERACILLIN/TAZOBACTAM SOD 3.375 GM in D5W MINI-BAG PLUS 50 ML IV SCH ×2 (00:44→09:15)
[2016-12-05] MEDS: ACETAMINOPHEN 325 MG TAB PO SCH ×4 (00:44→17:33)
[2016-12-05] MEDS: ALBUTEROL SULFATE 2.5 MG/0.5 ML INH NEB SOLN NEB SCH ×4 (01:06→19:32)
[2016-12-05 03:30] VITALS: BP 136/65
[2016-12-05] MEDS: LEVOTHYROXINE 25MCG TABLET (0.025MG) PO SCH (05:30)
[2016-12-05] MEDS: CIPROFLOXACIN 500 MG TAB PO SCH ×2 (06:00→17:34)
[2016-12-05 06:14] LABS: BASO % 0.3 % (0.0-1.0); EOS # 0.3 K/mm3 (0.0-0.50); EOS % 4.2 % (0.0-3.0); LARGE UNSTAINED CELL # 0.2 K/mm3 (0.0-0.4); LARGE UNSTAINED CELL % 3.1 % (0.0-4.0); LYMPH # 1.3 K/mm3 (1.5-4.5); LYMPH % 18.4 % (24.0-44.0); MEAN CORPUSCULAR HEMOGLOBIN 30.3 pg (27.0-33.0); MEAN CORPUSCULAR HGB CONC 33.5 g/dl (32.0-36.5); MEAN CORPUSCULAR VOLUME 90.6 fl (80.0-96.0); MONO # 0.4 K/mm3 (0.0-0.8); MONO % 5.7 % (0.0-5.0); NEUTROPHILS # 4.2 K/mm3 (1.8-7.7); NEUTROPHILS % 68.3 % (36.0-66.0); PLATELET COUNT, AUTOMATED 246 k/mm3 (150-450); RED CELL DISTRIBUTION WIDTH 13.1 % (11.5-14.5); WHITE BLOOD COUNT 6.2 K/mm3 (4.0-10.0)
[2016-12-05 06:23] LABS: ANION GAP 9 MEQ/L (8-16); BLOOD UREA NITROGEN 11 MG/DL (7-18); CALCIUM LEVEL 8.2 MG/DL (8.5-10.1); CARBON DIOXIDE LEVEL 28 MEQ/L (21-32); CHLORIDE LEVEL 106 MEQ/L (98-107); GLOMERULAR FILTRATION RATE > 60.0 (>56); GLUCOSE, FASTING 102 MG/DL (70-105); POTASSIUM SERUM 3.7 MEQ/L (3.5-5.1); SODIUM LEVEL 143 MEQ/L (136-145)
[2016-12-05 08:00] VITALS: BP 129/75
--- NOTE | 2016-12-05 09:08 | IPNPDOC ---
Subjective Date Seen The patient was seen on 12/05/16. Subjective Chief Complaint/HPI The patient is a 61-year-old male admitted with a reason for visit of Acute Appendicitis. Events since last encounter Pt this morning c/o crampy abd pain that comes and goes. He has liquid stools. He denies SOB, or cough. He is ambulating in the halls without difficulty, denies THOMAS. Using IS. Reports having transferred his care from [facility] to [facility], confirmed with seeing release of records document in [facility] dates 10/31/16. General: Denies: Fatigue Constitutional: Denies: Chills, Fever ENT: Denies: Head Aches Pulmonary: Denies: Dyspnea, Cough Cardiovascular: Denies: Chest Pain, Palpitations Gastrointestinal: Reports: Abdominal Pain, Diarrhea, Denies: Nausea, Vomiting Neurological: Denies: Weakness Psych: Reports: Mood Normal Objective Physical Examination General Exam: Positive: Alert, Cooperative ENT Exam: Positive: Mucous membr. moist/pink Neck Exam: Positive: Supple, Negative: JVD Chest Exam: Positive: Clear to auscultation, Diminished, Negative: Normal air movement Heart Exam: Positive: Rate Normal Abdomen Exam: Positive: Normal bowel sounds, Soft, Negative: Tenderness Skin Exam: Positive: Nl turgor and temperature, Negative: Rash Neuro Exam: Positive: Normal Speech Assessment /Plan Problems (1) Supplemental oxygen dependent Problem Text: D1 cipro/metro (previous 5D Zosyn) Cont to require O2 via NC, 0.5 to 1 LPM, he is using the IS, ambulating in the halls. ill ambulate off O2 today, may need to go home with O2 0.5 L has baseline COPD GOLD stage I c SaO2 mid 90s baseline-favor now worsened by mild NCNC anemia (post-op/dilutional)/decreased FVC 2 abdominal bloating/ baselien COPD +/- exacerbation-abx as above (dc on levo/metro) 12/04 CTA chest: IMPRESSION: 1. There no evidence of a pulmonary embolus. 2. Bibasilar opacities seen in conjunction with very small pleural effusions. 3. Subsegmental atelectatic change versus pneumonia, which needs to be correlated clinically. (2) Acute appendicitis Status: Acute Problem Text: Improved, s/p appendectomy - mgmt per GS. Plan/VTE VTE Prophylaxis Ordered?: Yes Disposition Should be on hospitalist service, no longer pt of [facility]. VS, I&O, 24H, Fishbone Vital Signs/I&O Vital Signs Date Time Temp Pulse Resp B/P (MAP) Pulse Ox O2 Delivery O2 Flow Rate FiO2 12/05/16 07:58 75 12/05/16 04:00 Nasal Cannula 0.5 12/05/16 04:00 93 12/05/16 03:30 99.0 18 136/65 (88) I&O- Last 24 Hours up to 6 AM 12/05/16 06:00 Intake Total 1460 ml Output Total 2240 ml Balance -780 ml Laboratory Data 24H LABS Laboratory Tests 2 12/05/16 05:54: White Blood Count 6.2, Red Blood Count 4.00L, Hemoglobin 12.1L, Hematocrit 36.2L , Mean Corpuscular Volume 90.6, Mean Corpuscular Hemoglobin 30.3, Mean Corpuscular Hemoglobin Concent 33.5, Red Cell Distribution Width 13.1, Platelet Count 246, Neutrophils (%) (Auto) 68.3H, Lymphocytes (%) (Auto) 18.4L, Monocytes (%) (Auto) 5.7H, Eosinophils (%) (Auto) 4.2H, Basophils (%) (Auto) 0.3 , Neutrophils # (Auto) 4.2, Lymphocytes # (Auto) 1.3L, Monocytes # (Auto) 0.4, Eosinophils # (Auto) 0.3, Basophils # (Auto) 0.0, Large Unclassified Cells % 3.1 , Large Unclassified Cells # 0.2, Anion Gap 9, Glomerular Filtration Rate > 60.0 , Blood Urea Nitrogen 11, Creatinine 1.10, Sodium Level 143, Potassium Level 3.7 , Chloride Level 106, Carbon Dioxide Level 28, Calcium Level 8.2L CBC/BMP Laboratory Tests 12/05/16 05:54 Red Blood Count 4.00 L, Mean Corpuscular Volume 90.6, Mean Corpuscular Hemoglobin 30.3, Mean Corpuscular Hemoglobin Concent 33.5, Red Cell Distribution Width 13.1, Neutrophils (%) (Auto) 68.3 H, Lymphocytes (%) (Auto) 18.4 L, Monocytes (%) (Auto) 5.7 H, Eosinophils (%) (Auto) 4.2 H, Basophils (%) (Auto) 0.3, Neutrophils # (Auto) 4.2, Lymphocytes # (Auto) 1.3 L, Monocytes # ( Auto) 0.4, Eosinophils # (Auto) 0.3, Basophils # (Auto) 0.0, Calcium Level 8.2 L ISA ESCAMILLA PA-C Dec 05, 2016 09:08 John Somers M.D. Dec 05, 2016 16:58
[2016-12-05] MEDS: ENOXAPARIN 40 MG/0.4 ML SYRINGE (J1650) SC SCH (09:15)
[2016-12-05] MEDS: ALVIMOPAN 12 MG CAPSULE (ENTEREG) PO SCH (09:15)
--- NOTE | 2016-12-05 11:32 | IPNPDOC ---
Subjective General Date/Time Seen The patient was seen on 12/05/16 at 11:29. Subject Chief Complaint/History The patient is a 61-year-old male admitted with a reason for visit of Acute Appendicitis. Events over the weekend reviewed. Patient reports feeling mildly better in terms of his abdominal pain. Started having bowel movements yesterday and has had 2 loose stools today. He was started on regular foods yesterday. His saturations are maintained on 3 L nasal cannula drops a little bit with ambulation. Nurse reports without O2 saturations dropped to 87% Current Medications Current Medications Current Medications Acetaminophen (Tylenol Tab) 650 mg Q4HP PRN PO MILD PAIN or TEMP > 101 Last administered on 12/02/16 20:09; Start 12/01/16 at 11:00; Stop 12/03/16 at 09:42 ; Status DC Acetaminophen (Tylenol Tab) 975 mg Q6H PO Last administered on 12/05/16 05:30 ; Start 12/03/16 at 12:00; Stop 01/02/17 at 11:59 Acetaminophen/ Hydrocodone Bitart ([place], Anexsia 5/325) 1 tab Q4HP PRN PO MODERATE/SEVERE PAIN (PS 5-10); Start 12/03/16 at 09:45; Stop 12/03/16 at 12:42 ; Status DC Albuterol Sulfate (Proventil Neb) 2.5 mg Q2HP PRN NEB SOB/WHEEZING Last administered on 12/02/16 15:30; Start 12/02/16 at 09:00; Stop 01/01/17 at 08:59 Albuterol Sulfate (Proventil Neb) 2.5 mg RQ6H NEB Last administered on 07:58; Start 12/02/16 at 14:00; Stop 01/01/17 at 13:59 Alvimopan (Entereg) 12 mg BID PO Last administered on 12/05/16 09:15; Start at 09:00; Stop 12/10/16 at 08:59 Atorvastatin Calcium (Lipitor) 10 mg QPM PO Last administered on 12/04/16 20: 19; Start 12/01/16 at 21:00; Stop 12/31/16 at 20:59 Cyanocobalamin (Vitamin B12) 1,000 mcg QPM PO Last administered on 12/04/16 20 :19; Start 12/01/16 at 21:00; Stop 12/31/16 at 20:59 Enoxaparin Sodium (Lovenox) 40 mg DAILY SC Last administered on 12/05/16 09:15 ; Start 12/04/16 at 09:00; Stop 12/09/16 at 08:59 Fentanyl Citrate (Sublimaze) 25 mcg Q5MP PRN IV MODERATE PAIN (PS 4-7); Start 12/01/16 at 19:00; Stop 12/01/16 at 20:00; Status DC Home Med (Med Rec Complete!) ASDIRECTED XX ; Start 12/01/16 at 09:30; Stop at 09:30; Status DC Ibuprofen (Advil) 600 mg Q6HP PRN PO MILD/MODERATE PAIN (PS 1-7) Last administered on 12/03/16 22:22; Start 12/03/16 at 09:45; Stop 01/02/17 at 09:44 Ketorolac Tromethamine (ToRADol) 30 mg Q6HP PRN IV PAIN Last administered on 02:04; Start 12/01/16 at 19:00; Stop 12/02/16 at 09:02; Status DC Lactated Ringer's 1,000 ml @ 100 mls/hr Q10H IV ; Start 12/01/16 at 19:00; Stop 12/01/16 at 20:00; Status DC Lactated Ringer's 1,000 ml @ 125 mls/hr Q8H IV Last administered on 12/03/16 08:29; Start 12/01/16 at 10:54; Stop 12/03/16 at 09:01; Status DC Levalbuterol HCl (Xopenex Neb) 0.63 mg Q4HP PRN NEB shortness of breath; Start 12/01/16 at 18:30; Stop 12/02/16 at 09:02; Status DC Levalbuterol HCl (Xopenex Neb) 1.25 mg ASDIRECTED NEB Last administered on 12/01 18:35; Start 12/01/16 at 19:00; Stop 12/01/16 at 20:00; Status DC Levothyroxine Sodium (Synthroid) 25 mcg DAILY@0600 PO Last administered on 12/05 05:30; Start 12/02/16 at 06:00; Stop 01/01/17 at 05:59 Metoclopramide HCl (REGLAN INJection) 10 mg Q6HP PRN IV NAUSEA OR VOMITING; Start 12/01/16 at 19:00; Stop 12/01/16 at 20:00; Status DC Morphine Sulfate (Morphine Sulfate Inj) 4 mg Q2HP PRN IV SEVERE PAIN (PS 8-10) Last administered on 12/03/16 08:29; Start 12/01/16 at 11:00; Stop 12/04/16 at 13:00; Status DC Multivitamins (Theragram-M) 1 tab QPM PO Last administered on 12/04/16 20:20; Start 12/01/16 at 21:00; Stop 12/31/16 at 20:59 Ondansetron HCl (ZOFRAN INJection) 4 mg Q4HP PRN IV NAUSEA OR VOMITING; Start 12/01/16 at 19:00; Stop 12/01/16 at 20:00; Status DC Ondansetron HCl (ZOFRAN INJection) 4 mg Q6HP PRN IV NAUSEA OR VOMITING; Start 12/01/16 at 11:00; Stop 12/31/16 at 10:59 Oxycodone HCl (Roxicodone, Oxyir) 5 mg Q4HP PRN PO SEVERE PAIN (PS 8-10); Start 12/03/16 at 12:45; Stop 12/10/16 at 12:44 Oxycodone/ Acetaminophen (Percocet 5mg/ 325mg Tablet) 1 tab ASDIRECTED PRN PO MILD/MODERATE PAIN (PS 1-7) Last administered on 12/01/16 19:22; Start at 19:30; Stop 12/01/16 at 20:30; Status DC Piperacillin Sod/ Tazobactam Sod 3.375 gm/Dextrose 50 ml @ 50 mls/hr Q6H IV Last administered on 12/05/16 09:15; Start 12/01/16 at 14:00; Stop 12/08/16 at 13:59 Potassium Chloride (Micro-K Extencaps) 20 meq TID PO Last administered on 19:58; Start 12/03/16 at 09:00; Stop 12/03/16 at 23:59; Status DC Allergies Coded Allergies: Milk Protein Extract (Verified Allergy, Unknown, 12/01/16) Tiotropium (Verified Allergy, Unknown, 12/01/16) Objective Physical Examination Examination GENERAL APPEARANCE:Patient seen, laying in bed, awake, alert, and oriented. Comfortable, in no acute distress. SKIN: Warm and moist. HEENT: Normocephalic, atraumatic. [place] palpebral conjunctiva, anicteric sclerae. Lips and mucosa appear moist. NECK: Supple, no thyromegaly. No obvious jugular venous distention. LUNGS: Clear to auscultation bilaterally. No wheezing appreciated. HEART: No chest wall abnormalities. Regular rate and rhythm with no murmurs appreciated. ABDOMEN: Abdomen is , round, soft, degree of abdominal distention markedly improved no still appears minimally distended. SHIRLEY drain still puts out light pink serosanguineous fluid. He still is tender over the right lower quadrant area under direct palpation. EXTREMITIES: Extremities have no deformities. No edema identified. Vital Signs Vital Signs Date Time Temp Pulse Resp B/P (MAP) Pulse Ox O2 Delivery O2 Flow Rate FiO2 12/05/16 11:14 87 Room Air 12/05/16 08:00 97.7 78 18 129/75 (93) 0.5 I&Os I&O- Last 24 Hours up to 6 AM 12/05/16 05:59 Intake Total 1460 ml Output Total 2240 ml Balance -780 ml Laboratory Data CBC/BMP Laboratory Tests 12/05/16 05:54 Red Blood Count 4.00 L, Mean Corpuscular Volume 90.6, Mean Corpuscular Hemoglobin 30.3, Mean Corpuscular Hemoglobin Concent 33.5, Red Cell Distribution Width 13.1, Neutrophils (%) (Auto) 68.3 H, Lymphocytes (%) (Auto) 18.4 L, Monocytes (%) (Auto) 5.7 H, Eosinophils (%) (Auto) 4.2 H, Basophils (%) (Auto) 0.3, Neutrophils # (Auto) 4.2, Lymphocytes # (Auto) 1.3 L, Monocytes # ( Auto) 0.4, Eosinophils # (Auto) 0.3, Basophils # (Auto) 0.0, Calcium Level 8.2 L Impression Perforated appendicitis, postop day 4 after laparoscopic appendectomy COPD We will discontinue the entereg as patient is having some diarrhea now. He is tolerating regular foods. We will switch the Zosyn to Cipro and metronidazole orally. Continue to monitor him. He feels remains afebrile and the drain remains serosanguineous we'll discontinue the drain and most likely send him home on oral antibiotics. Inserted this point is if he maintains his saturations when he is moving around. Options will be to discharge him on home O2 if he continues to desaturate significantly with ambulating though he is maintaining sats about 90 % and above when he is just laying down in bed. Continue doing incentive spirometer's. Plan / VTE VTE Prophylaxis Ordered?: Yes JCARLOS YANG MD Dec 05, 2016 11:32
[2016-12-05 12:00] VITALS: BP 126/71
[2016-12-05] MEDS: metroNIDAZOLE (FLAGYL) 500 MG TAB PO SCH ×2 (14:27→21:35)
[2016-12-05 16:00] VITALS: BP 131/74
[2016-12-05] MEDS: CYANOCOBALAMIN 500 MCG TAB PO SCH (21:35)
[2016-12-05] MEDS: ATORVASTATIN 20 MG TAB PO SCH (21:36)
[2016-12-05] MEDS: MULTIVITAMINS/MINERALS THERAP 1 TAB PO SCH (21:36)
[2016-12-06] VITALS: BP 136/82
[2016-12-06] MEDS: ALBUTEROL SULFATE 2.5 MG/0.5 ML INH NEB SOLN NEB SCH ×2 (01:19→07:17)
[2016-12-06 04:00] VITALS: BP 136/81
[2016-12-06] MEDS: ACETAMINOPHEN 325 MG TAB PO SCH ×3 (06:06→11:28)
[2016-12-06] MEDS: metroNIDAZOLE (FLAGYL) 500 MG TAB PO SCH ×2 (06:07→13:59)
[2016-12-06] MEDS: LEVOTHYROXINE 25MCG TABLET (0.025MG) PO SCH (06:07)
[2016-12-06] MEDS: CIPROFLOXACIN 500 MG TAB PO SCH (06:07)
[2016-12-06 07:17] VITALS: O2SAT 93
[2016-12-06 07:20] LABS: BASO % 0.4 % (0.0-1.0); EOS # 0.2 K/mm3 (0.0-0.50); EOS % 2.6 % (0.0-3.0); LARGE UNSTAINED CELL # 0.3 K/mm3 (0.0-0.4); LARGE UNSTAINED CELL % 3.8 % (0.0-4.0); LYMPH # 1.4 K/mm3 (1.5-4.5); LYMPH % 15.3 % (24.0-44.0); MEAN CORPUSCULAR HEMOGLOBIN 30.6 pg (27.0-33.0); MEAN CORPUSCULAR HGB CONC 33.3 g/dl (32.0-36.5); MEAN CORPUSCULAR VOLUME 91.9 fl (80.0-96.0); MONO # 0.4 K/mm3 (0.0-0.8); MONO % 5.3 % (0.0-5.0); NEUTROPHILS # 5.5 K/mm3 (1.8-7.7); NEUTROPHILS % 72.5 % (36.0-66.0); PLATELET COUNT, AUTOMATED 308 k/mm3 (150-450); RED CELL DISTRIBUTION WIDTH 13.2 % (11.5-14.5); WHITE BLOOD COUNT 7.5 K/mm3 (4.0-10.0)
[2016-12-06 07:32] LABS: ANION GAP 8 MEQ/L (8-16); BLOOD UREA NITROGEN 14 MG/DL (7-18); CALCIUM LEVEL 8.8 MG/DL (8.5-10.1); CARBON DIOXIDE LEVEL 27 MEQ/L (21-32); CHLORIDE LEVEL 106 MEQ/L (98-107); CREATININE FOR GFR 1.06 MG/DL (0.70-1.30); GLOMERULAR FILTRATION RATE > 60.0 (>56); GLUCOSE, FASTING 104 MG/DL (70-105); POTASSIUM SERUM 3.5 MEQ/L (3.5-5.1); SODIUM LEVEL 141 MEQ/L (136-145)
[2016-12-06 08:00] VITALS: BP 117/64
[2016-12-06] MEDS: ENOXAPARIN 40 MG/0.4 ML SYRINGE (J1650) SC SCH (08:21)
--- NOTE | 2016-12-06 10:08 | IPNPDOC ---
Subjective Date Seen The patient was seen on 12/06/16. Subjective Chief Complaint/HPI The patient is a 61-year-old male admitted with a reason for visit of Acute Appendicitis. Events since last encounter Pt reports less abd pain, distention this morning. He is eating well, moving his bowels. He has no respiratory symptoms. He is ambulating the halls and using the IS. General: Denies: Fatigue Constitutional: Denies: Chills, Fever Pulmonary: Denies: Dyspnea, Cough Cardiovascular: Denies: Chest Pain, Palpitations Gastrointestinal: Denies: Nausea, Vomiting, Diarrhea Neurological: Denies: Weakness Psych: Reports: Mood Normal Objective Physical Examination General Exam: Positive: Alert, Cooperative ENT Exam: Positive: Mucous membr. moist/pink Neck Exam: Positive: Supple, Negative: JVD Chest Exam: Positive: Clear to auscultation, Diminished, Negative: Normal air movement Heart Exam: Positive: Rate Normal Abdomen Exam: Positive: Normal bowel sounds, Soft, Negative: Tenderness Skin Exam: Positive: Nl turgor and temperature, Negative: Rash Neuro Exam: Positive: Normal Speech Assessment /Plan Problems (1) Supplemental oxygen dependent Problem Text: 12/06 - Ambulated in the [place] today off O2 at 90% RA. OK from medical standpoint to be d/c without O2. 12/05 D1 cipro/metro (previous 5D Zosyn) Cont to require O2 via NC, 0.5 to 1 LPM, he is using the IS, ambulating in the halls. ill ambulate off O2 today, may need to go home with O2 0.5 L has baseline COPD GOLD stage I c SaO2 mid 90s baseline-favor now worsened by mild NCNC anemia (post-op/dilutional)/decreased FVC 2 abdominal bloating/ baselien COPD +/- exacerbation-abx as above (dc on levo/metro) 12/04 CTA chest: IMPRESSION: 1. There no evidence of a pulmonary embolus. 2. Bibasilar opacities seen in conjunction with very small pleural effusions. 3. Subsegmental atelectatic change versus pneumonia, which needs to be correlated clinically. (2) Acute appendicitis Status: Acute Problem Text: Improved, s/p appendectomy - mgmt per GS. Plan/VTE VTE Prophylaxis Ordered?: Yes VS, I&O, 24H, Fishbone Vital Signs/I&O Vital Signs Date Time Temp Pulse Resp B/P (MAP) Pulse Ox O2 Delivery O2 Flow Rate FiO2 12/06/16 09:11 90 Room Air 12/06/16 08:59 76 12/06/16 08:00 98.2 18 117/64 (81) 12/06/16 04:00 0.5 I&O- Last 24 Hours up to 6 AM 12/06/16 06:00 Intake Total 960 ml Output Total 2395 ml Balance -1435 ml Laboratory Data 24H LABS Laboratory Tests 2 12/06/16 06:55: White Blood Count 7.5, Red Blood Count 4.21L, Hemoglobin 12.9L, Hematocrit 38.7L , Mean Corpuscular Volume 91.9, Mean Corpuscular Hemoglobin 30.6, Mean Corpuscular Hemoglobin Concent 33.3, Red Cell Distribution Width 13.2, Platelet Count 308, Neutrophils (%) (Auto) 72.5H, Lymphocytes (%) (Auto) 15.3L, Monocytes (%) (Auto) 5.3H, Eosinophils (%) (Auto) 2.6, Basophils (%) (Auto) 0.4 , Neutrophils # (Auto) 5.5, Lymphocytes # (Auto) 1.4L, Monocytes # (Auto) 0.4, Eosinophils # (Auto) 0.2, Basophils # (Auto) 0.0, Large Unclassified Cells % 3.8 , Large Unclassified Cells # 0.3, Anion Gap 8, Glomerular Filtration Rate > 60.0 , Blood Urea Nitrogen 14, Creatinine 1.06, Sodium Level 141, Potassium Level 3.5 , Chloride Level 106, Carbon Dioxide Level 27, Calcium Level 8.8 CBC/BMP Laboratory Tests 12/06/16 06:55 Red Blood Count 4.21 L, Mean Corpuscular Volume 91.9, Mean Corpuscular Hemoglobin 30.6, Mean Corpuscular Hemoglobin Concent 33.3, Red Cell Distribution Width 13.2, Neutrophils (%) (Auto) 72.5 H, Lymphocytes (%) (Auto) 15.3 L, Monocytes (%) (Auto) 5.3 H, Eosinophils (%) (Auto) 2.6, Basophils (%) ( Auto) 0.4, Neutrophils # (Auto) 5.5, Lymphocytes # (Auto) 1.4 L, Monocytes # ( Auto) 0.4, Eosinophils # (Auto) 0.2, Basophils # (Auto) 0.0, Calcium Level 8.8 ISA ESCAMILLA PA-C Dec 06, 2016 10:08
[2016-12-06 12:00] VITALS: BP 132/85
[2016-12-06] MEDS ORDERED: OXYCO5TA PO (13:17)
[2016-12-06] MEDS ORDERED: FLAG500T PO (13:17)
[2016-12-06] MEDS ORDERED: CIPR-249 PO (13:17)
--- NOTE | 2016-12-07 15:01 | DS.PDOC ---
Discharge Summary General Date of Admission Dec 01, 2016 at 18:07 Date of Discharge 12/06/2016 Primary Care Physician: John Somers M.D. Attending Physician: JCARLOS YANG MD Discharge Summary PROCEDURES PERFORMED DURING STAY: Laparoscopic appendectomy. ADMITTING DIAGNOSES: 1. Acute appendicitis 2. COPD DISCHARGE DIAGNOSES: 1. Acute appendicitis.- Perforated 2. COPD mild exacerbated postoperatively 3. Hypoxemia COMPLICATIONS/CHIEF COMPLAINT: Acute Appendicitis. HISTORY OF PRESENT ILLNESS: See HPI HOSPITAL COURSE: Patient was seen in the emergency room and evidence for acute appendicitis. He was quite tender over the right lower quadrant area on my exam. He was also febrile preoperatively with temperature up to 102. He was taken to the operating room and underwent ectopic appendectomy. The appendix was noted to be perforated at the base. On waking up after the procedure, patient had some transient episode of difficulty breathing which improved with nebulizations. He was continued with Xopenex nebulizations. His perioperative course is marked by a few days of postoperative ileus where he was having markedly abdominal distention unable to pass flatus. This continued to affect his breathing. He remained on oxygen. He consulted his medical doctors for help in managing his asthma and COPD. Eventually was able to start passing flatus by postoperative day 2 and followed by loose bowel movements. He was started on diet initially liquids and progressed to regular food which she tolerated. He had initial episodes of fever which went away by postoperative day #2. Likewise his leukocytosis promptly resolve postoperatively. On discharge is tolerating regular foods he still has 2 or 3 episodes of loose stools daily but is able to maintain adequate hydration. He's been afebrile. He reports no ongoing abdominal discomfort. His drain has been removed more than 24 hours prior to discharge. He is breathing normally. DISCHARGE MEDICATIONS: Please see below. ALLERGIES: Please see below. PHYSICAL EXAMINATION ON DISCHARGE: VITAL SIGNS: Please see below. GENERAL: Comfortable in no acute distress HEENT: [place] palpebral conjunctiva, lips and mucosa moist NECK: No jugular venous distention CARDIOVASCULAR EXAMINATION: Regular heart rate and rhythm RESPIRATORY EXAMINATION: Clear to auscultation bilaterally ABDOMINAL EXAMINATION: Round, protuberant, nondistended, port site incisions healing well. Drain site is clean and dry. Nontender and palpation EXTREMITIES: No edema SKIN: No rashes NEUROLOGICAL EXAMINATION: Awake alert and oriented LABORATORY DATA: Please see below. PROGNOSIS: Good ACTIVITY: As tolerated. DIET: Regular diet. DISCHARGE PLAN: Discharge home DISPOSITION: Home, Self-Care. DISCHARGE INSTRUCTIONS: 1. With follow-up in clinic in 2 weeks' time. 2. Complete 2 week antibiotic course ITEMS TO FOLLOWUP ON ON OUTPATIENT: 1. Call if with return of fever, abdominal pain, severe diarrhea DISCHARGE CONDITION: Stable. TIME SPENT ON DISCHARGE: Greater than 30 minutes. Vital Signs/I&Os Vital Signs Date Time Temp Pulse Resp B/P (MAP) Pulse Ox O2 Delivery O2 Flow Rate FiO2 12/06/16 12:00 99.2 67 18 132/85 (101) 93 Room Air 12/06/16 04:00 0.5 I&O- Last 24 Hours up to 6 AM 12/07/16 06:00 Intake Total 1080 ml Output Total 30 ml Balance 1050 ml Discharge Medications Scheduled Atorvastatin Calcium (Atorvastatin Calcium) 20 Mg Tab, 10 MG PO QPM, (Reported) Ciprofloxacin HCl (Cipro) 500 Mg Tab, 500 MG PO BID@,18 Cyanocobalamin (Vitamin B-12) 1,000 Mcg Tab, 1,000 MCG PO QPM, (Reported) Levothyroxine Sodium (Levoxyl) 25 Mcg Tab, 25 MCG PO DAILY, (Reported) Metronidazole (Flagyl) 500 Mg Tab, 500 MG PO TID Multivitamins *[facility] STOCKED* (Thera M Plus *[facility] STOCKED*) 1 Tab Tab, 1 TAB PO QPM , (Reported) Vitamin D (Drisdol) 50,000 Unit Cap, 50,000 UNIT PO Q2WK, (Reported) TAKES EVERY OTHER MONDAY Scheduled PRN Oxycodone HCl (Oxycodone HCl) 5 Mg Tab, 5 MG PO Q4HP PRN for SEVERE PAIN (PS 8- 10) Allergies Coded Allergies: Milk Protein Extract (Verified Allergy, Unknown, 12/01/16) Tiotropium (Verified Allergy, Unknown, 12/01/16) JCARLOS YANG MD Dec 07, 2016 15:01
[2017-02-20] MEDS ORDERED: IBUP-1114 PO (16:15)
== END 2016-12-06 14:45 | disposition home or self-care (01) | DRG 339 ==
LOC: M ED 04:43 → M SDC 11:09 → M PED 11:47 → M SDC 18:06 → M PED 18:07
PROVIDERS: ADMIT Surgery; ATTEND Surgery
PROC: 0DTJ4ZZ Resection of Appendix, Percutaneous Endoscopic Approach (ICD-10-PCS; principal; 2016-12-01 09:34)
DX: K35.2 Acute appendicitis with generalized peritonitis (principal); J44.1 Chronic obstructive pulmonary disease with (acute) exacerbation; J95.89 Other postprocedural complications and disorders of respiratory system, not elsewhere classified; Z79.899 Other long term (current) drug therapy; Z91.011 Allergy to milk products; Z88.8 Allergy status to other drugs, medicaments and biological substances; F17.290 Nicotine dependence, other tobacco product, uncomplicated; Z90.49 Acquired absence of other specified parts of digestive tract; R09.02 Hypoxemia

== ENCOUNTER 2017-02-24 07:47 | Day surgery (SDC) | payer OTHER ==
[~2017-02-24] VITALS: Ht 165.1 cm; Wt 82.1 kg
[~2017-02-24 07:47] MED LIST: ATOR1TAB21 PO; B121000T PO; CIPR-249 PO; DRIS50002 PO; FLAG500T PO; IBUP-1114 PO; LEVO25TA34 PO; LEVO25TA5; OXYCO5TA PO; VITA10002 PO; VITA1CAP40; VITMTA PO
[2017-02-24] MEDS ORDERED: NS 1,000 ML IV ONE (08:00)
[2017-02-24] MEDS ORDERED: LIDOCAINE 2% INJ 100 MG/5 ML SDV (FOR ANES.) As Ordered ONE (09:26)
[2017-02-24] MEDS ORDERED: PROPOFOL 200 MG/20 ML VIAL As Ordered ONE (09:26)
[2017-02-24] MEDS ORDERED: PHENYLephrine HCL 500 MCG/5 ML (100MCG/ML) SYRINGE (J2370) As Ordered ONE (09:33)
--- NOTE | 2017-02-24 10:18 | ROOR ---
Patient Name: Mundo Valverde Procedure Date: 02/24/2017 9:27 AM Date of : 1955 Age: 61 Room: [facility] Gender: Male Note Status: Finalized Procedure: Total Colonoscopy to Cecum + Hot/Cold Snare Polypectomy + Hemoclips Indications: High risk colon cancer surveillance: Personal history of colonic polyps, Last colonoscopy: 2011 Providers: Zach Evans MD Referring MD: [facility], [facility], Admin. Requesting Provider: Medicines: Monitored Anesthesia Care Complications: No immediate complications. Procedure: Pre-Anesthesia Assessment: - The heart rate, respiratory rate, oxygen saturations, blood pressure, adequacy of pulmonary ventilation, and response to care were monitored throughout the procedure. The Colonoscope was introduced through the anus and advanced to the cecum, identified by appendiceal orifice and ileocecal valve. The colonoscopy was performed without difficulty. The patient tolerated the procedure well. The quality of the bowel preparation was excellent. Findings: The perianal and digital rectal examinations were normal. Non-bleeding internal hemorrhoids were found during retroflexion. The hemorrhoids were small and Grade I (internal hemorrhoids that do not prolapse). A medium polyp was found in the rectum. The polyp was sessile. The polyp was removed with a hot snare. Resection and retrieval were complete. To prevent bleeding after the polypectomy, one hemostatic clip was successfully placed (MR conditional). There was no bleeding at the end of the procedure. A large polyp was found at 30 cm proximal to the anus. The polyp was semi-pedunculated. The polyp was removed with a hot snare. Resection and retrieval were complete. To prevent bleeding after the polypectomy, two hemostatic clips were successfully placed (MR conditional). There was no bleeding at the end of the procedure. A medium polyp was found in the hepatic flexure. The polyp was sessile. The polyp was removed with a cold snare. Resection and retrieval were complete. A small polyp was found at 30 cm proximal to the anus. The polyp was sessile. The polyp was removed with a cold snare. Resection and retrieval were complete. The exam was otherwise without abnormality on direct and retroflexion views. Impression: - Non-bleeding internal hemorrhoids. - One medium polyp in the rectum, removed with a hot snare. Resected and retrieved. Clip (MR conditional) was placed. - One large polyp at 30 cm proximal to the anus, removed with a hot snare. Resected and retrieved. Clips (MR conditional) were placed. - One medium polyp at the hepatic flexure, removed with a cold snare. Resected and retrieved. - One small polyp at 30 cm proximal to the anus, removed with a cold snare. Resected and retrieved. - The examination was otherwise normal on direct and retroflexion views. - The exam was otherwise normal to the cecum. Recommendation: - Patient has a contact number available for emergencies. The signs and symptoms of potential delayed complications were discussed with the patient. Return to normal activities tomorrow. Written discharge instructions were provided to the patient. - High fiber diet. - Discharge patient to home. - Continue present medications. - Await pathology results. - Telephone GI clinic for pathology results in 1 week. - Check Portal Online for Path Results.([email or web address]) - Repeat colonoscopy for surveillance based on pathology results. - The findings and recommendations were discussed with the patient's family. Zach Evans MD Zach Evans MD 02/24/2017 10:17:40 AM This report has been signed electronically. Number of Addenda: 0 Note Initiated On: 02/24/2017 9:27 AM Estimated Blood Loss: Estimated blood loss: none.
[2017-02-24 10:37] VITALS: BP 157/77
== END 2017-02-24 10:42 | disposition home or self-care (01) ==
LOC: M OPP 07:47 → EDSTATUS 09:00 → M OPP 10:42
PROVIDERS: ATTEND Internal Medicine Gastroenterology
DX: Z12.11 Encounter for screening for malignant neoplasm of colon (principal); Z86.010 Personal history of colon polyps; K62.1 Rectal polyp; D12.5 Benign neoplasm of sigmoid colon; D12.3 Benign neoplasm of transverse colon; K64.0 First degree hemorrhoids; E78.5 Hyperlipidemia, unspecified; E03.9 Hypothyroidism, unspecified; R19.7 Diarrhea, unspecified; F10.20 Alcohol dependence, uncomplicated; M51.9 Unspecified thoracic, thoracolumbar and lumbosacral intervertebral disc disorder; J44.9 Chronic obstructive pulmonary disease, unspecified; F17.210 Nicotine dependence, cigarettes, uncomplicated; Z88.8 Allergy status to other drugs, medicaments and biological substances; Z91.011 Allergy to milk products; Z79.899 Other long term (current) drug therapy; Z80.3 Family history of malignant neoplasm of breast
CPT/HCPCS: 45385; 88305; J2370

== ENCOUNTER 2019-01-26 15:13 | Emergency (ER) | payer OTHER ==
[~2019-01-26] VITALS: Ht 165.1 cm; Wt 94.2 kg
[2019-01-26 15:13] VITALS: BP 142/86
[~2019-01-26 15:13] MED LIST changes: +CYAN100049 PO; -DRIS50002 PO; +DRIS50003 PO; -VITA10002 PO; -VITA1CAP40; +VITA50005
--- NOTE | 2019-01-26 15:38 | REP ---
Right hand four views : There is no fracture or dislocation. Mineralization and joint spaces are normal. There are no calcifications or foreign bodies. Impression: Negative right hand . Electronically Signed by Jourdan Harvey MD 01/26/2019 03:30 P
== END 2019-01-26 16:10 | disposition home or self-care (01) ==
LOC: M ED 15:13
DX: S63.634A Sprain of interphalangeal joint of right ring finger, initial encounter (principal); S63.636A Sprain of interphalangeal joint of right little finger, initial encounter; W01.0XXA Fall on same level from slipping, tripping and stumbling without subsequent striking against object, initial encounter; Y92.018 Other place in single-family (private) house as the place of occurrence of the external cause; Z79.899 Other long term (current) drug therapy; Z88.8 Allergy status to other drugs, medicaments and biological substances; F17.210 Nicotine dependence, cigarettes, uncomplicated

== ENCOUNTER → 2022-05-11 | Outpatient (CLI) | payer OTHER ==
[~2022-05-11] MED LIST changes: +MULT-90 PO
== END ==
LOC: M LABSMTC 09:45
PROVIDERS: ATTEND Anesthesiology
DX: Z01.812 Encounter for preprocedural laboratory examination (principal); Z20.822 Contact with and (suspected) exposure to COVID-19

== ENCOUNTER 2022-05-16 08:49 | Day surgery (SDC) | payer OTHER ==
[~2022-05-16] VITALS: Ht 165.1 cm; Wt 94.7 kg
[~2022-05-16 08:49] MED LIST changes: +NS 1,000 ML IV ONE
[2022-05-16] MEDS ORDERED: LIDOCAINE 2% 100MG/5ML SDV (FOR ANES.) As Ordered ONE (10:13)
[2022-05-16] MEDS ORDERED: propofoL 200 MG/20 ML VIAL As Ordered ONE (10:13)
[2022-05-16 11:00] VITALS: BP 125/67
== END 2022-05-16 11:08 | disposition home or self-care (01) ==
LOC: M OPP 08:49
PROVIDERS: ATTEND Internal Medicine Gastroenterology
DX: Z86.010 Personal history of colon polyps (principal); D12.0 Benign neoplasm of cecum; K64.0 First degree hemorrhoids; K57.30 Diverticulosis of large intestine without perforation or abscess without bleeding; E78.5 Hyperlipidemia, unspecified; E03.9 Hypothyroidism, unspecified; M19.90 Unspecified osteoarthritis, unspecified site; J44.9 Chronic obstructive pulmonary disease, unspecified; Z88.8 Allergy status to other drugs, medicaments and biological substances; Z79.890 Hormone replacement therapy; Z79.899 Other long term (current) drug therapy

== ENCOUNTER → 2025-01-21 | Outpatient (CLI) | payer OTHER ==
[~2025-01-21] MED LIST changes: -NS 1,000 ML IV ONE
== END ==
LOC: M CARPUL 09:10
PROVIDERS: ATTEND Registered Nurse
DX: R94.31 Abnormal electrocardiogram [ECG] [EKG] (principal); R06.02 Shortness of breath; Z82.49 Family history of ischemic heart disease and other diseases of the circulatory system

== ENCOUNTER → 2025-03-14 | Outpatient (CLI) | payer OTHER | LOC: M PLAIMG 09:38 | PROVIDERS: ATTEND Registered Nurse | DX: R94.31 Abnormal electrocardiogram [ECG] [EKG] (principal); R06.02 Shortness of breath ==